=== PATIENT | female | born 1995 | race Two or more races ===

== ENCOUNTER 2025-08-08 19:09 | Emergency (ER) | payer OTHER ==
[~2025-08-08] VITALS: Ht 160 cm; Wt 63.5 kg
[2025-08-08 20:29] VITALS: BP 105/62; O2SAT 98
[2025-08-08] MEDS ORDERED: ACETAMINOPHEN 500 MG GEL..CAP PO ONE (21:00)
[2025-08-08] MEDS ORDERED: IPRATROPIUM BROMIDE 0.5 MG/2.5 ML AMPUL.NEB IH SCH (21:00)
[2025-08-08] MEDS ORDERED: HYDROCODONE/CHLORPHEN P-STIREX 5 ML ML PO ONE (21:00)
[2025-08-08] MEDS ORDERED: LEVALBUTEROL HCL 1.25 MG/3 ML SOLUTION IH SCH (21:00)
[2025-08-08] MEDS ORDERED: METHYLPREDNISOLONE SOD SUCC 125 MG VIAL IV ONE (21:00)
[2025-08-08 22:07] LABS: BASO % 0.4 % (0.1-1.2); EOS # 0.24 (0.04-0.54); EOS % 2.5 % (0.7-7.0); LYMPH # 2.31 (1.18-3.74); LYMPH % 24.4 % (19.3-53.1); MEAN PLATELET VOLUME 11.40 fl (9.4-12.4); MONO # 0.65 (0.24-0.82); MONO % 6.9 % (4.7-12.5); NEUT # 6.19 (1.56-6.13); NEUT % 65.5 % (34.0-71.1); RED CELL DISTRIBUTION WIDTH 12.2 % (11.6-14.4)
[2025-08-08 23:35] LABS: COVID-19 AG NEGATIVE (NEGATIVE)
[2025-08-08] MEDS ORDERED: MEDROLPACK PO (23:47)
[2025-08-08] MEDS ORDERED: IPRAT-ALBUT 0.5-3 ML IH (23:47)
[2025-08-08] MEDS ORDERED: MUCINEX1200 MG PO (23:47)
[2025-08-08] MEDS ORDERED: PEPCID AC20 MG PO (23:47)
== END 2025-08-09 01:13 | disposition home or self-care (01) ==
LOC: ER 19:10
PROVIDERS: General Practice
DX: B34.9 Viral infection, unspecified (principal); Z88.1 Allergy status to other antibiotic agents; Z91.018 Allergy to other foods; Z20.822 Contact with and (suspected) exposure to COVID-19